=== PATIENT | female | born 1950 | race Asian ===

== ENCOUNTER → 2021-11-21 | Outpatient (CLI) | payer OTHER ==
[2021-11-23 08:07] LABS: QUANTIFERON, TB GOLD PLUS Negative (Negative)
== END | disposition home or self-care (01) ==
LOC: LABMN 11:14
PROVIDERS: ATTEND Family Medicine
DX: Z02.89 Encounter for other administrative examinations (principal); Z11.3 Encounter for screening for infections with a predominantly sexual mode of transmission; Z20.828 Contact with and (suspected) exposure to other viral communicable diseases; Z20.1 Contact with and (suspected) exposure to tuberculosis
CPT/HCPCS: 86480; 86592; 86706; 86735; 86762; 86765; 86787; 87350; 87491; 87591

== ENCOUNTER → 2022-01-04 | Outpatient (CLI) | payer OTHER | END | disposition home or self-care (01) | LOC: LABMN 11:19 | PROVIDERS: ATTEND Family Medicine | DX: Z20.828 Contact with and (suspected) exposure to other viral communicable diseases (principal); Z11.3 Encounter for screening for infections with a predominantly sexual mode of transmission; Z20.1 Contact with and (suspected) exposure to tuberculosis; Z02.89 Encounter for other administrative examinations | CPT/HCPCS: 87340 ==

== ENCOUNTER 2023-03-06 10:17 | Emergency (ER) | payer MEDICAID, OTHER ==
[~2023-03-06] VITALS: Ht 149.9 cm; Wt 53.6 kg
[2023-03-06 10:27] VITALS: BP 135/79; PULSE 94; RESP 20; TEMP 98.9
[2023-03-06 12:17] LABS: COVID AG,FIA SOURCE NASAL SWAB
[2023-03-06 12:37] LABS: SARS-COV2 (COVID) ANTIGEN,FIA Negative (Negative)
[2023-03-06 12:38] LABS: INFLUENZA TYPE A NEGATIVE FOR TYPE A (NEGATIVE); INFLUENZA TYPE B NEGATIVE FOR TYPE B (NEGATIVE)
== END 2023-03-06 16:00 | disposition home or self-care (01) ==
LOC: EMS 10:43
DX: J06.9 Acute upper respiratory infection, unspecified (principal); Z20.822 Contact with and (suspected) exposure to COVID-19
CPT/HCPCS: 71045; 87804; 99284